=== PATIENT | female | born 1990 | race Two or more races ===

== ENCOUNTER 2017-06-11 09:09 | Emergency (ER) | payer MEDICAID ==
[~2017-06-11] VITALS: Ht 154.9 cm; Wt 66.2 kg
[2017-06-11] MEDS ORDERED: NKM (09:19)
[2017-06-11 09:25] VITALS: BP 128/85
[2017-06-11] MEDS ORDERED: IBUPROFEN600 MG ORAL (10:58)
--- NOTE | 2017-06-11 11:02 | Diagnostic Imaging Report ---
Indication: Pain Technique: XRAY Shoulder Compl L Comparison: None Findings: There is no evidence of acute fracture or dislocation. Imaged left lung is clear. No radiopaque foreign body identified. Impression: No evidence of acute fracture or dislocation.
[2017-06-11 11:10] VITALS: BP 128/85
--- NOTE | 2017-06-11 11:32 | Diagnostic Imaging Report ---
Indication: Pain Technique: XRAY Elbow Min 3v L Comparison: None Findings/Impression: There is no definite/displaced acute fracture. No elbow joint effusion. No dislocation. A linear radiodensity projecting over the distal forearm on 2 of the 3 views may be external to the patient - correlate with a physical exam.
--- NOTE | 2017-06-12 22:25 | Emergency Room Report ---
History of Present Illness General Chief Complaint: Upper Extremity Injury Source: Patient Present Illness HPI Patient present with complaints of pain to the left elbow and left shoulder essentially pain radiating from the shoulder down to the elbow Patient reports a [place] Reports a mechanical fall Denies any chest pain or shortness of breath denies any headache denies any neck pain Denies any other trauma pain is worse with tried to lift the arm up or flex at the elbow Allergies: Coded Allergies: No Known Allergies (Unverified , 06/11/17) Patient History Past Medical History: see triage record Pertinent Family History: none Last Menstrual Period: 05/24/17 Now: No Reviewed Nursing Documentation: PMH: Agreed, PSxH: Agreed Nursing Documentation-PMH Past Medical History: No Stated History Review of Systems All Other Systems: negative except mentioned in HPI Physical Exam Vital Signs Date Time Temp Pulse Resp B/P (MAP) Pulse Ox O2 Delivery O2 Flow Rate FiO2 06/11/17 09:15 98.2 82 16 123/85 97 Room Air Sp02 EP Interpretation: reviewed, normal General Appearance: well appearing, no apparent distress Head: normocephalic, atraumatic Eyes: bilateral eye PERRL, bilateral eye EOMI ENT: hearing grossly normal Neck: full range of motion, supple, no meningismus, no bony tend Respiratory: lungs clear, normal breath sounds, no rhonchi, no respiratory distress, no retraction, no accessory muscle use Cardiovascular #1: normal peripheral pulses, regular rate, rhythm, no edema, no gallop, no JVD, no murmur Genitourinary: no CVA tenderness Musculoskeletal: other - To palpation of the anterior shoulder on the left side , also palpation of the lateral and medial elbow, no obvious ecchymosis or bruising, patient able to supinate and pronate Neurologic: oriented x3, responsive, sensory intact Psychiatric: mood/affect normal Skin: normal color, no rash, warm/dry, palpation normal Lymphatic: normal inspection, no adenopathy Medical Decision Making Diagnostic Impression: Primary Impression: shoulder sprain Additional Impression: contusion ER Course Given the patient's presentation x-ray imaging was obtained no obvious acute fractures appreciated Patient was provided with a shoulder sling This is for symptomatic relief and is not considered a splint Patient will have close outpatient followup Other X-Ray Diagnostic Results Other X-Ray Diagnostic Results #1: X-Ray ordered: Left shoulder # of Views/Limited Vs Complete: 3 View Indication: Pain EP Interpretation: Yes Interpretation: no dislocation, no soft tissue swelling, no fractures Impression: No acute disease Electronically Signed by: Silvia Frances DO Other X-Ray Diagnostic Results #2: X-Ray ordered: Left elbow # of Views/Limited Vs Complete: 3 View Indication: Pain EP Interpretation: Yes Interpretation: no dislocation, no soft tissue swelling, no fractures Impression: No acute disease Electronically Signed by: Silvia Frances DO Last Vital Signs Date Time Temp Pulse Resp B/P (MAP) Pulse Ox O2 Delivery O2 Flow Rate FiO2 06/11/17 11:10 98.2 79 16 128/85 97 Room Air Status: improved Disposition: HOME, SELF-CARE Condition: Stable Scripts Ibuprofen* (MOTRIN*) 600 Mg Tablet 600 MG ORAL Q8H Y for For Pain, #20 TAB 0 Refills Prov: SILVIA FRANCES D.O. 06/11/17 Referrals: NOT CHOSEN IPA/MD,REFERRING (PCP) Patient Instructions: Contusion, [id number], Elbow Contusion, [id number], Shoulder Sprain Additional Instructions: Patient is provided with the discharge instructions notified to follow up with primary doctor in the next 2-3 days otherwise return to the er with any worsening symptoms. Please note that this report is being documented using [employer] technology. This can lead to erroneous entry secondary to incorrect interpretation by the dictating instrument. SILVIA FRANCES D.O. Jun 12, 2017 22:25
== END 2017-06-11 11:10 | disposition home or self-care (01) ==
LOC: EMR 09:51
DX: S43.402A Unspecified sprain of left shoulder joint, initial encounter (principal); W01.0XXA Fall on same level from slipping, tripping and stumbling without subsequent striking against object, initial encounter; Y92.831 Amusement park as the place of occurrence of the external cause
CPT/HCPCS: 99284